=== PATIENT | male | born 1970 ===

== ENCOUNTER 2023-01-12 11:55 | Emergency (ER) | payer MEDICARE, MEDICAID, SELFPAY ==
--- NOTE | 2023-01-12 12:20 | ED.ALLEREA ---
HPI - Allergic Reaction General Chief complaint: Allergic Reaction Stated complaint: allergic reaction Time Seen by Provider: 01/12/23 12:21 Source: patient Mode of arrival: ambulatory Limitations: no limitations History of Present Illness HPI narrative: 52 yo male with no known medical history here with complaints of itching rash after eating fish yesterday. No diff breathing, diff swallowing, cough, wheezing, vomiting, diarrhea, abdominal cramping Related Data Previous Rx's Medication Instructions Recorded prednisone 20 mg tablet 40 mg PO DAILY #10 tabs 01/12/23 Allergies Allergy/AdvReac Type Severity Reaction Status Date / Time Unable to Assess Allergy Verified 01/12/23 12:25 Review of Systems Review of Systems: Yes all other systems are reviewed and are negative Constitutional: Constitutional: Reports no additional constitutional complaints, Denies body ache(s), Denies chills, Denies fever(s), Denies headache(s) and Denies weakness Eyes: Eyes: Reports no additional eye complaints and Denies change in vision ENT: Reports system reviewed and no additional complaints, except as documented, Denies dizziness, Denies headache(s), Denies nasal congestion, Denies nasal discharge and Denies neck pain Cardiovascular: Cardiovascular: Reports no additional cardiovascular complaints, Denies chest pain, Denies leg edema and Denies dyspnea Respiratory: Respiratory: Reports no additional respiratory complaints, Denies cough and Denies dyspnea Gastrointestinal: Gastrointestinal: Reports no additional gastrointestinal complaints, Denies abdominal pain, Denies diarrhea, Denies nausea and Denies vomiting Genitourinary: Genitourinary: Denies urinary incontinence Musculoskeletal: Musculoskeletal: Reports no additional musculoskeletal complaints, Denies back pain, Denies arthralgias, Denies joint swelling, Denies neck pain, Denies numbness and Denies tingling Integumentary/Breasts: Skin/Breast: Reports system reviewed and no additional complaints, except as docu and Reports rash Neurologic: Reports system reviewed and no additional complaints, except as documented, Denies dizziness, Denies headache(s), Denies numbness, Denies tingling and Denies weakness [facility] Past Medical History Attestation statement: The following information was validated with the patient. Source: old records reviewed and nursing notes reviewed Physical Exam ED Vital Signs: Vital Signs - 24 hr 01/12/23 12:21 Temperature 98.3 F Pulse Rate 95 Respiratory Rate 20 Blood Pressure 134/88 Pulse Oximetry 98 Oxygen Delivery Method Room Air BMI result Body Mass Index 26.6 Const General: cooperative, healthy appearing, comfortable and no acute distress Orientation/consciousness: patient oriented x3 Limitations: no limitations HENMT Other: no stridor Head: Yes normal to inspection Ears: hearing grossly normal bilaterally Mouth: Normal oral and palatal mucosa present, lip normal and tongue normal Throat: Yes posterior oropharynx normal, Yes tonsils normal and Yes uvula midline Eyes General: appearance normal, both eyes and all related structures Pupils: Equal, round and reactive pupils present Neck Neck: Yes normal visual inspection, Yes full ROM, Yes no lymphadenopathy and Yes no meningeal signs Chest Chest palpation & inspection: normal inspection of the chest Resp Effort & Inspection: normal respiratory effort Auscultation: clear to auscultation bilaterally Cardio Rate: regular rate Rhythm: regular rhythm Peripheral pulses: Peripheral pulses 2+ throughout GI Inspection: Yes normal to inspection Palpation (GI): Soft to palpation and nontender Back/Spine/Pelvis Thoracic/Lumbar Spine: thoracic and lumbar spine normal to inspection Skin Other: Urticrial rash noted over dorsal hands, left upper extremity, back- very mild Neuro General: patient oriented x3, moves all extremities and no meningeal signs Cranial nerves: Yes Equal, round and reactive pupils present Cognition (Neuro): normal cognition Gait exam (Neuro): Normal gait present Extrem General: Yes normal to inspection, Yes no pedal edema and Yes no calf tenderness Course Course Course Narrative: This is a rapid medical exam. Deferred additional HPI, ROS, PE to primary provider. Medical Decision Making Medical Decision Making MDM Narrative: 52 yo male here with itching rash after eating fish yesterday. Took benadryl x 3 with continued symptoms. No angioedema, airway intact, LS CTA. Very mild rash noted. Will give prednisone course. Reviewed worrisome signs/symptoms with patient and when to seek additional care Differential Diagnosis Differential Diagnoses: The differential diagnosis associated with the presentation includes mild allergic reaction low concern for anaphylaxis Discharge Plan Discharge Clinical Impression: Allergic reaction Patient Disposition: Home, Self-Care Instructions: General Allergic Reaction (ED) Additional Instructions: Continue benadryl as needed Prescriptions: New prednisone 20 mg tablet 40 mg PO DAILY Qty: 10 0RF Referrals: Physician,Unknown J [Primary Care Provider] - Print Language: Marshallese
[2023-01-12 12:21] VITALS: BP 134/88; PULSE 95; RESP 20; TEMP 36.8; O2SAT 98; BMI 26.6
== END 2023-01-12 12:37 | disposition home or self-care (01) ==
PROVIDERS: Emergency Provider Emergency Medicine
DX: L50.0 Allergic urticaria (principal)
CPT/HCPCS: 99282; 99283

== ENCOUNTER 2023-01-13 09:57 | Emergency (ER) | payer MEDICARE, MEDICAID, SELFPAY ==
[2023-01-13 10:02] VITALS: BP 124/81; PULSE 82; RESP 20; TEMP 36.1; O2SAT 96; BMI 26.6
--- NOTE | 2023-01-13 10:43 | ED.ALLEREA ---
HPI - Allergic Reaction General Chief complaint: Allergic Reaction Stated complaint: Allergic Reaction Time Seen by Provider: 01/13/23 10:42 Source: patient and public relations professional Mode of arrival: ambulatory Limitations: language barrier History of Present Illness HPI narrative: 52-year-old male healthy here with complaints of itching rash to the hands and upper extremities which began 2 days ago after eating fish. Patient reports he was seen here yesterday in the emergency room and was prescribed prednisone. He is here today because he reports continued itching. He does not feel like the rash has progressed. He is taking Benadryl with continued symptoms of itching. He denies cough, wheezing, abdominal pain, vomiting, diarrhea, difficulty breathing or so difficulty swallowing Related Data Previous Rx's Medication Instructions Recorded prednisone 20 mg tablet 40 mg PO DAILY #10 tabs 01/12/23 famotidine 40 mg tablet 40 mg PO DAILY #7 tabs 01/13/23 hydrocortisone 2.5 % topical cream 1 appl topical QID PRN itching 01/13/23 #454 grams loratadine 10 mg tablet (Claritin) 10 mg PO DAILY #30 tabs 01/13/23 Allergies Allergy/AdvReac Type Severity Reaction Status Date / Time No Known Allergies Allergy Verified 01/13/23 10:05 Review of Systems Review of Systems: Yes all other systems are reviewed and are negative Constitutional: Constitutional: Reports no additional constitutional complaints, Denies body ache(s), Denies chills, Denies fever(s), Denies headache(s) and Denies weakness Eyes: Eyes: Reports no additional eye complaints and Denies change in vision ENT: Reports system reviewed and no additional complaints, except as documented, Denies dizziness, Denies headache(s), Denies nasal congestion, Denies nasal discharge and Denies neck pain Cardiovascular: Cardiovascular: Reports no additional cardiovascular complaints, Denies chest pain, Denies leg edema and Denies dyspnea Respiratory: Respiratory: Reports no additional respiratory complaints, Denies cough and Denies dyspnea Gastrointestinal: Gastrointestinal: Reports no additional gastrointestinal complaints, Denies abdominal pain, Denies diarrhea, Denies nausea and Denies vomiting Genitourinary: Genitourinary: Denies urinary incontinence Musculoskeletal: Musculoskeletal: Reports no additional musculoskeletal complaints, Denies back pain, Denies arthralgias, Denies joint swelling, Denies neck pain, Denies numbness and Denies tingling Integumentary/Breasts: Skin/Breast: Reports system reviewed and no additional complaints, except as docu and Reports rash Neurologic: Reports system reviewed and no additional complaints, except as documented, Denies dizziness, Denies headache(s), Denies numbness, Denies tingling and Denies weakness PMF Past Medical History Attestation statement: The following information was validated with the patient. Source: old records reviewed and nursing notes reviewed Physical Exam ED Vital Signs: Vital Signs - 24 hr 01/13/23 10:02 Temperature 97.0 F Pulse Rate 82 Respiratory Rate 20 Blood Pressure 124/81 Pulse Oximetry 96 Oxygen Delivery Method Room Air BMI result Body Mass Index 26.6 Const General: cooperative, healthy appearing, comfortable and no acute distress Orientation/consciousness: patient oriented x3 Limitations: no limitations HENMT Head: Yes normal to inspection Ears: hearing grossly normal bilaterally Mouth: Normal oral and palatal mucosa present, lip normal and tongue normal Eyes General: appearance normal, both eyes and all related structures Pupils: Equal, round and reactive pupils present Neck Other: No stridor Neck: Yes normal visual inspection Chest Chest palpation & inspection: normal inspection of the chest Resp Effort & Inspection: normal respiratory effort Auscultation: clear to auscultation bilaterally Cardio Rate: regular rate Rhythm: regular rhythm Peripheral pulses: Peripheral pulses 2+ throughout GI Inspection: Yes normal to inspection Palpation (GI): Soft to palpation and nontender General: Yes no CVA tenderness Back/Spine/Pelvis Back: no CVA tenderness Thoracic/Lumbar Spine: thoracic and lumbar spine normal to inspection Skin Other: Mild urticarial rash noted over the dorsal aspects of the hands, forearms and left upper extremity Neuro General: patient oriented x3 and moves all extremities Cranial nerves: Yes Equal, round and reactive pupils present Medical Decision Making Medical Decision Making MDM Narrative: 52-year-old male here with urticarial rash which is quite itchy for 2 days which he relates to eating fish despite taking 1 dose of prednisone yesterday. Patient also taking Benadryl reports continued itching. Patient has no angioedema or airway involvement His lungs are clear He has a mild urticarial rash noted over the hands and forearms I will add Claritin, famotidine hydrocortisone topical Reviewed worrisome signs and symptoms of when to return to the emergency room. Comfortable plan for discharge home. Differential Diagnosis Differential Diagnoses: The differential diagnosis associated with the presentation includes Low concern for anaphylaxis Discharge Plan Discharge Clinical Impression: Allergic reaction Patient Disposition: Home, Self-Care Instructions: General Allergic Reaction (ED) Additional Instructions: Continue prednisone and benadryl Prescriptions: New famotidine 40 mg tablet 40 mg PO DAILY Qty: 7 0RF loratadine [Claritin] 10 mg tablet 10 mg PO DAILY Qty: 30 0RF hydrocortisone 2.5 % cream 1 appl topical QID PRN (Reason: itching) Qty: 454 0RF No Action prednisone 20 mg tablet 40 mg PO DAILY Qty: 10 0RF Referrals: Allen Mauricio MD [Primary Care Provider] - 1 week Print Language: Romanian
--- OUTSIDE RECORDS SUMMARY | 2023-01-13 10:58 | XMS_ITS | Continuity of Care Document ---
Author Name Unknown Organization [facility] Sandra radha Address [address] [place] [address] [address] [place] [address]- Care Team Providers Care Sql Etl Developer Name Role Phone Not on Staff, PCP Primary Care Physician Unavail able Encounter [facility] Date(s): 12/12/21 - 12/19/21 [facility] [address] [place], [place] [address] Attending Physician: Misael Knowles MD Allergies, Adverse Reactions, Alerts No Known Allergies Immunizations Given and Recorded Vaccine Date Status Refusal Reason tetanus/diphtheria/pertussis, acel(Tdap) 06/20/17 Given Medications Naproxen By Mouth, 0 Refills, Maintenance, 10/03/21 11:14:00 EST, Partial fill upon patient request if the prescription is for a schedule II opioid drug. Start Date: 10/03/21 Status: Ordered Sertraline By Mouth, Daily, 0 Refills, Maintenance, 10/03/21 11:15:00 EST, Partial fill upon patient request if the prescription is for a schedule II opioid drug. Start Date: 10/03/21 Status: Ordered Vital Signs Most recent to oldest [Reference Range]: 1 Height 153 cm (12/12/21 2:17 PM) Social History Social History Type Response Smoking Status Former smoker, quit more than 30 days ago entered on: 10/03/21 Sex
--- OUTSIDE RECORDS SUMMARY | 2023-01-13 10:58 | XMS_ITS | Continuity of Care Document ---
Author Name Unknown Organization [facility] Sandra radha Address [address] [place] [address] [address] [place] [address]- Care Team Providers Care Medical Superintendent Name Role Phone Not on Staff, PCP Primary Care Physician Unavail able Encounter [facility] Date(s): 12/05/21 - 01/04/[address] [place], [place] [address] Allergies, Adverse Reactions, Alerts No Known Allergies [...] opioid drug. Start Date: 10/03/21 Status: Ordered Social History Social History Type Response Smoking Status Former smoker, quit more than 30 days ago entered on: 10/03/21 Sex
--- OUTSIDE RECORDS SUMMARY | 2023-01-13 10:58 | XMS_ITS | Continuity of Care Document ---
Author Name Unknown Organization [facility] radha Address [address] [place] [address] [address] [place] [address]- Care Team Providers Care Net Programmer Name Role Phone Not on Staff, PCP Primary Care Physician Unavail able Encounter [facility] Date(s): 10/31/21 - 11/07/21 [facility] [address] [place], [place] [address] Attending Physician: Misael Knowles MD Allergies, Adverse Reactions, Alerts No Known Allergies Immunizations Given and Recorded Vaccine Date Status Refusal Reason tetanus/diphtheria/pertussis, acel(Tdap) 06/20/17 Given Medications Naproxen By Mouth, 0 Refills, Maintenance, 10/03/21 11:14:00 EST, Partial fill upon patient request if the prescription is for a schedule II opioid drug. Start Date: 10/03/21 Status: Ordered NuLYTELY with Flavor Packs oral powder for reconstitution See Instructions, 240 mL By Mouth Every 15 minutes, # 4,000 mL, 0 Refills, Maintenance, 10/28/20 16:21:00 EDT, [facility] #[id number], Ok to sub for any gallon prep, 240 mL By Mouth Every 15 minutes Start Date: 10/28/20 Status: Ordered Sertraline By Mouth, Daily, 0 Refills, Maintenance, 10/03/21 11:15:00 EST, Partial fill upon patient request if the prescription is for a schedule II opioid drug. Start Date: 10/03/21 Status: Ordered Vital Signs Most recent to oldest [Reference Range]: 1 Height 162 cm (10/31/21 9:22 AM) Weight 69 kg (10/31/21 9:22 AM) Body Mass Index [18.5-24.99] 26.29 *H* (10/31/21 9:22 AM) Social History Social History Type Response Smoking Status Former smoker, quit more than 30 days ago entered on: 10/03/21 Sex
--- OUTSIDE RECORDS SUMMARY | 2023-01-13 10:58 | XMS_ITS | Continuity of Care Document ---
Author Name Unknown Organization [facility] Address [address] [place] [address]- Care Team Providers Care Movie Actor Name Role Phone Hang ECHOLS, Allen Pereira Primary Care Physician Encounter [facility] Date(s): 10/28/20 - 11/27/20 [facility] [address] [place], [place] [address] Allergies, Adverse Reactions, Alerts Substance Reaction Severity Status NKA Active Immunizations Given and Recorded Vaccine Date Status Refusal Reason tetanus/diphtheria/pertussis, acel(Tdap) 06/20/17 Given Medications NuLYTELY with Flavor Packs oral powder for reconstitution See Instructions, 240 mL By Mouth Every 15 minutes, # 4,000 mL, 0 Refills, Maintenance, 10/28/20 16:21:00 EDT, [facility] #[id number], Ok to sub for any gallon prep, 240 mL By Mouth Every 15 minutes Start Date: 10/28/20 Status: Ordered
--- OUTSIDE RECORDS SUMMARY | 2023-01-13 10:58 | XMS_ITS | Continuity of Care Document ---
Author Name Unknown Organization [facility] radha Address [address] [place] [address] [address] [place] [address]- Care Team Providers Care Marketing Operations Associate Name Role Phone Not on Staff, PCP Primary Care Physician Unavail able Encounter [facility] Date(s): 10/05/21 - 11/04/[address] [place], [place] [address] Allergies, Adverse Reactions, Alerts No Known Allergies [...] mL, 0 Refills, Maintenance, 10/28/20 16:21:00 EDT, [facility] #[id number], Ok to sub for any gallon prep, [...]
--- OUTSIDE RECORDS SUMMARY | 2023-01-13 10:58 | XMS_ITS | Continuity of Care Document ---
Author Name Unknown Organization [facility] Address [address] [place] [address]- Care Team Providers Care Metal Polisher And Buffer Apprentice Name Role Phone Allen Mauricio MD Primary Care Physician Encounter [facility] Date(s): 11/01/20 - 11/01/[address] [address] Discharge Disposition: A-D/C Home Attending Physician: Will Jin MD Admitting Physician: Will Jin MD Referring Physician: Will Jin MD Allergies, Adverse Reactions, Alerts Substance Reaction Severity Status NKA Active Immunizations Given and Recorded Vaccine Date Status Refusal Reason tetanus/diphtheria/pertussis, acel(Tdap) 06/20/17 Given Medications NuLYTELY with Flavor Packs oral powder for reconstitution See Instructions, 240 mL By Mouth Every 15 minutes, # 4,000 mL, 0 Refills, Maintenance, 10/28/20 16:21:00 EDT, [facility] #[id number], Ok to sub for any gallon prep, 240 mL By Mouth Every 15 minutes Start Date: 10/28/20 Status: Ordered Vital Signs Most recent to oldest [Reference Range]: 1 2 3 Height 163 cm (11/01/20 2:45 PM) Oxygen Saturation [94-100 %] 100 % (11/01/20 3:43 PM) 99 % (11/01/20 3:35 PM) 98 % (11/01/20 2:45 PM) Pulse Rate [55-90 bpm] 67 bpm (11/01/20 2:45 PM) Blood Pressure [90-138/55-84 mm Hg] 124/90mm Hg (11/01/20 3:43 PM) 137/89mm Hg (11/01/20 3:35 PM) 141/93mm Hg *H* (11/01/20 2:45 PM) Respiratory Rate [16-30 br/min] 20 br/min (11/01/20 3:43 PM) 20 br/min (11/01/20 3:35 PM) 20 br/min (11/01/20 2:45 PM) Temperature [96.8-100.4 DegF] 97.6 DegF (11/01/20 2:45 PM) Mode of Delivery (Oxygen) Room air (11/01/20 3:43 PM) Room air (11/01/20 3:35 PM) Room air (11/01/20 2:45 PM) Temperature Route Temporal (11/01/20 2:45 PM) Dry Weight 69 kg (11/01/20 2:45 PM)
--- OUTSIDE RECORDS SUMMARY | 2023-01-13 10:58 | XMS_ITS | Continuity of Care Document ---
Author Name Unknown Organization [facility] Sandra radha Address [address] [place] [address] [address] [place] [address]- Care Team Providers Care Hvac R Tech Name Role Phone Not on Staff, PCP Primary Care Physician Unavail able Encounter [facility] Date(s): 10/18/21 - 11/25/21 [facility] [address] [place], [place] [address] Attending Physician: Misael Knowles MD [...] mL, 0 Refills, Maintenance, 10/28/20 16:21:00 EDT, [facility] #[id number], Ok to sub for any gallon prep, [...]
--- OUTSIDE RECORDS SUMMARY | 2023-01-13 10:58 | XMS_ITS | Continuity of Care Document ---
Author Name Unknown Organization [facility] Address [address] [place] [address]- Care Team Providers Care Electric Mule Driver Name Role Phone Hang ECHOLS, Allen Pereira Primary Care Physician ( [phone] Encounter [facility] Date(s): 11/29/20 - 12/29/20 [facility] [address] [place], [place] [address] Allergies, Adverse Reactions, Alerts Substance Reaction Severity Status NKA Active Immunizations Given and Recorded Vaccine Date Status Refusal Reason tetanus/diphtheria/pertussis, acel(Tdap) 06/20/17 Given Medications NuLYTELY with Flavor Packs oral powder for reconstitution See Instructions, 240 mL By Mouth Every 15 minutes, # 4,000 mL, 0 Refills, Maintenance, 10/28/20 16:21:00 EDT, [facility] #[id number], Ok to sub for any gallon prep, 240 mL By Mouth Every 15 minutes Start Date: 10/28/20 Status: Ordered
--- OUTSIDE RECORDS SUMMARY | 2023-01-13 10:58 | XMS_ITS | Continuity of Care Document ---
Author Name Unknown Organization [facility] radha Address [address] [place] [address] [address] [place] [address]- Care Team Providers Care Community Board Member Name Role Phone Not on Staff, PCP Primary Care Physician Unavail able Encounter [facility] Date(s): 04/05/22 - 05/05/22 [facility] [address] [place], [place] [address] Attending Physician: Horace Arevalo Admitting Physician: AdmHorace lam Referring Physician: Admtr, Ar8 Allergies, Adverse Reactions, Alerts No Known Allergies [...] 30 days ago entered on: 10/03/21 Sex Patient Care team information Personnel Name: Not on Staff, PCP
--- OUTSIDE RECORDS SUMMARY | 2023-01-13 10:58 | XMS_ITS | Continuity of Care Document ---
Author Name Unknown Organization [facility] Sandra radha Address [address] [place] [address] [address] [place] [address]- Care Team Providers Care Chief Chemist Name Role Phone Not on Staff, PCP Primary Care Physician Unavail able Encounter [facility] Date(s): 03/27/22 - 05/05/[address] [place], [place] [address] Attending Physician: Benson ECHOLS, Misael Matthews Allergies, Adverse Reactions, Alerts No Known Allergies [...]
--- OUTSIDE RECORDS SUMMARY | 2023-01-13 10:58 | XMS_ITS | Continuity of Care Document ---
Author Name Unknown Organization [facility] Sandra radha Address [address] [place] [address] [address] [place] [address]- Care Team Providers Care Circulation Manager Name Role Phone Allen Mauricio MD Primary Care Physician Encounter [facility] [id number] Date(s): 10/03/21 - 10/10/21 [facility] [address] [place] [address]- Attending Physician: Misael Knowles MD Referring Physician: Allen Mauricio MD Allergies, Adverse Reactions, Alerts No Known [...] 4,000 mL, 0 Refills, Maintenance, 10/28/20 16:21:00 T, [facility] #[id number], Ok to sub for any gallon prep, 240 mL By Mouth Every 15 minutes Start Date: 10/28/20 Status: Ordered Sertraline By Mouth, Daily, 0 Refills, Maintenance, 10/03/21 11:15:00 EST, Partial fill upon patient request if the prescription is for a schedule II opioid drug. Start Date: 10/03/21 Status: Ordered Vital Signs Most recent to oldest [Reference Range]: 1 Height 162 cm (10/03/21 11:05 AM) Weight 69 kg (10/03/21 11:05 AM) Body Mass Index [18.5-24.99] 26.29 *H* (10/03/21 11:05 AM) Social History Social History Type Response Smoking Status Former smoker, quit more than 30 days ago entered on: 10/03/21 Sex
--- OUTSIDE RECORDS SUMMARY | 2023-01-13 10:58 | XMS_ITS | Continuity of Care Document ---
Author Name Unknown Organization [facility] Address [address] [place] [address]- Care Team Providers Care Hydrometer Finisher Name Role Phone Hang ECHOLS, Allen Pereira Primary Care Physician Encounter [facility] Date(s): 09/21/20 - 10/21/20 [facility] [address] [place], [place] [address] Attending Physician: Admtr, Horace Admitting Physician: Admtr, Ar8 Referring Physician: Admtr, Ar8 Allergies, Adverse Reactions, Alerts Substance Reaction Severity Status NKA Active Immunizations Given and Recorded Vaccine Date Status Refusal Reason tetanus/diphtheria/pertussis, acel(Tdap) 06/20/17 Given Medications NuLYTELY with Flavor Packs oral powder for reconstitution See Instructions, 240 mL By Mouth Every 15 minutes, # 4,000 mL, 0 Refills, Maintenance, 09/21/20 10:12:00 [facility] #[id number], Partial fill upon patient request if the prescription is for a schedule II opioid drug., 240 mL By Mouth Every... Start Date: 09/21/20 Status: Ordered
== END 2023-01-13 11:04 | disposition home or self-care (01) ==
PROVIDERS: Emergency Provider Emergency Medicine; PCP Internal Medicine
DX: L50.9 Urticaria, unspecified (principal); T78.40XA Allergy, unspecified, initial encounter; X58.XXXA Exposure to other specified factors, initial encounter
CPT/HCPCS: 99282; 99283

== ENCOUNTER 2023-01-14 06:55 | Emergency (ER) | payer MEDICARE, MEDICAID, SELFPAY ==
[2023-01-14 07:07] VITALS: BP 135/99; PULSE 79; RESP 19; TEMP 36.6; O2SAT 99; BMI 26.6
[2023-01-14 08:42] VITALS: BP 163/93; PULSE 72; RESP 16; O2SAT 97
[2023-01-14 08:48] LABS: MANUAL DIFF FLAG NO
[2023-01-14 08:50] LABS: Basophils Percent Auto 0.3 % (0-2); Eosinophils Absolute Auto 0.1 X10*3/uL (0.0-0.4); Eosinophils Percent Auto 2.1 % (0-4); Hematocrit 40.4 % (42.0-52.0); Hemoglobin 13.5 g/dl (14.0-18.0); Imm Gran Abs Auto 0.03 X10*3/uL (0.00-0.03); Imm Gran Pct Auto 0.5 % (0.0-0.4); Lymphocytes Absolute Auto 1.7 X10*3/uL (1.2-4.9); Lymphocytes Percent Auto 25.8 % (20-40); Mean Corpuscular HGB Conc 33.4 g/dl (31.0-36.0); Mean Corpuscular Hemoglobin 29.5 pg (27.0-33.0); Mean Corpuscular Volume 88.2 fL (80.0-98.0); Mean Platelet Volume 9.9 fL (9.4-12.4); Monocytes Absolute Auto 0.4 X10*3/uL (0.1-1.2); Monocytes Percent Auto 6.2 % (2-11); Neutrophils Absolute Auto 4.3 x10*3/uL (2.0-8.3); Neutrophils Percent Auto 65.1 % (45-73); Platelet Count 182 X10*3/uL (160-400); Red Blood Count 4.58 X10*6/uL (4.60-5.80); White Blood Count 6.6 X10*3/uL (4.8-10.8)
[2023-01-14 09:04] LABS: Alanine Aminotransferase 13 U/L (0-40); Albumin Level 4.3 g/dL (3.5-5.0); Alkaline Phosphatase 107 U/L (39-117); Anion Gap 12 (12-20); Aspartate Amino Transferase 14 U/L (5-37); Bilirubin Total 0.2 mg/dL (0.0-1.0); Blood Urea Nitrogen 16 mg/dL (9-16); Calcium 9.4 mg/dL (8.4-10.2); Carbon Dioxide 25 mmol/L (22-29); Chloride 110 mmol/L (96-108); Creatinine Clr Calc Pharmacy 94.1; Estimated Glomerular Filt Rate > 60; Glucose Random 104 mg/dL (60-115); Potassium 3.8 mmol/L (3.3-5.1); Sodium 143 mmol/L (135-145)
--- NOTE | 2023-01-14 09:08 | ED_ITS ---
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 He has be en evaluated here in the emergency room on Sunday, Sunday, and then again today. Patient states that he has known allergy to shrimp but he had not had any reaction to fish until evening. He denies any employment related contact with [employer] in states that he states at home and watches TV. Related Data Previous Rx's Medication Instructions Recorded prednisone 20 mg tablet 40 mg PO DAILY #10 tabs 01/12/23 famotidine 40 mg tablet 40 mg PO DAILY #7 tabs 01/13/23 hydrocortisone 2.5 % topical cream 1 appl topical QID PRN itching 01/13/23 #454 grams loratadine 10 mg tablet (Claritin) 10 mg PO DAILY #30 tabs 01/13/23 Allergies Allergy/AdvReac Type Severity Reaction Status Date / Time No Known Allergies Allergy Verified 01/14/23 07:07 Review of Systems Review of Systems: Pertinent positives and negatives as stated in [facility] Past Medical History Source: nursing notes reviewed Social History Social History Advance Directives: No Advance Directives Information Provided: Yes Physical Exam ED Vital Signs: Vital Signs - 24 hr 01/14/23 07:07 01/14/23 08:42 01/14/23 10:23 Temperature 98 F Pulse Rate 79 72 66 Respiratory Rate 19 16 14 Blood Pressure 135/99 H 163/93 H 140/73 H Pulse Oximetry 99 97 97 Oxygen Delivery Method Room Air Room Air Room Air BMI result Body Mass Index 26.6 VITAL SIGNS: Reviewed. GENERAL: Well developed, well nourished, in no acute distress. HEAD: Normocephalic/atraumatic EYES: PERRLA, EOMI EARS: Ext canals without abnormality NOSE: Nares patent bilateral OROPHARYNX: no oral lesions noted, posterior pharynx clear, no facial/tongue/lip swelling NECK: Supple, no adenopathy LUNGS: Normal breath sounds. No adventitious sounds or accessory muscle use. SpO2<97> CARDIOVASCULAR: Regular rate and rhythm without noted murmurs ABDOMEN: Soft, non-tender, non-distended with bowel sounds. MUSCULOSKELETAL: No tenderness, deformities, or effusions noted on gross inspection. EXTREMITIES: No cyanosis, clubbing or edema. SKIN: Inspection of the skin reveals grouped papular rash to bilateral hand dorsum, 1 site at the left upper eyelid, slightly reddened area at the right lateral malleolus NEUROLOGIC: Alert and oriented x 4. Strength and sensation to light touch were grossly intact x 4. Medications Administered Discontinued Medications Generic Name Dose Route Start Last Admin Trade Name Freq PRN Reason Stop Dose Admin Diphenhydramine HCl 50 mg 01/14/23 08:37 01/14/23 09:37 Diphenhydramine Hcl 50 Mg/Ml Vial IVPUSH 01/14/23 08:38 50 mg ONCE ONE Administration Methylprednisolone Sodium Succinate 125 mg 01/14/23 08:37 01/14/23 09:37 Methylprednisolone Sod Succ 125 Mg/2 Ml Vial IVPUSH 01/14/23 08:38 125 mg ONCE ONE Administration Medical Decision Making Medical Decision Making MDM Narrative: 52-year-old male with history and clinical presentation consistent with poison [place]ira exposure but patient adamantly denies, inconsistent with shingles, does not appear be in any way related with angioedema or anaphylaxis, inconsistent with a porphyria. Will obtain basic labs, give 125 mg of Solu-Medrol, 50 mg of IV Benadryl and re-evaluate. No evidence to suggest anaphylaxis. On re-evaluation patient is feeling much better, resting comfortably and will be discharged home to complete the remaining course of medications that he has already been prescribed. Differential Diagnosis Please see the discussion above Lab Data 01/14/23 08:45 01/14/23 08:45 Labs: Lab Results 01/14/23 01/14/23 Range/Units 08:45 08:45 WBC 6.6 (4.8-10.8) X10*3/uL RBC 4.58 L (4.60-5.80) X10*6/uL Hgb 13.5 L (14.0-18.0) g/dl Hct 40.4 L (42.0-52.0) % MCV 88.2 (80.0-98.0) fL MCH 29.5 (27.0-33.0) pg MCHC 33.4 (31.0-36.0) g/dl RDW 14.0 (11.0-16.0) % Plt Count 182 (160-400) X10*3/uL MPV 9.9 (9.4-12.4) fL Immature Gran % (Auto) 0.5 H (0.0-0.4) % Neut % (Auto) 65.1 (45-73) % Lymph % (Auto) 25.8 (20-40) % Mckinley % (Auto) 6.2 (2-11) % Eos % (Auto) 2.1 (0-4) % Baso % (Auto) 0.3 (0-2) % Lymph # (Auto) 1.7 (1.2-4.9) X10*3/uL Mckinley # (Auto) 0.4 (0.1-1.2) X10*3/uL Eos # (Auto) 0.1 (0.0-0.4) X10*3/uL Baso # (Auto) 0.0 (0.0-0.2) X10*3/uL Abs Immat Gran (auto) 0.03 (0.00-0.03) X10*3/uL Absolute Neuts (auto) 4.3 (2.0-8.3) x10*3/uL Absolute Nucleated RBC 0.000 (0.0-0.012) X10*3/uL Nucleated RBC % (auto) 0.0 (0.0-0.2) /100WBC Sodium 143 (135-145) mmol/L Potassium 3.8 (3.3-5.1) mmol/L Chloride 110 H (96-108) mmol/L Carbon Dioxide 25 (22-29) mmol/L Anion Gap 12 (12-20) BUN 16 (9-16) mg/dL Creatinine 0.76 (0.5-1.4) mg/dL Estim Creat Clear Calc 94.1 Estimated GFR > 60 Random Glucose 104 (60-115) mg/dL Calcium 9.4 (8.4-10.2) mg/dL Total Bilirubin 0.2 (0.0-1.0) mg/dL AST 14 (5-37) U/L ALT 13 (0-40) U/L Alkaline Phosphatase 107 (39-117) U/L Total Protein 7.0 (6.5-8.0) g/dL Albumin 4.3 (3.5-5.0) g/dL Discharge Plan Discharge Clinical Impression: Allergic reaction, Contact dermatitis due to poison [place] Patient Disposition: Home, Self-Care Instructions: Poison [place] (ED), General Allergic Reaction (ED) Additional Instructions: 1. Reanudar todos los medicamentos caseros seg?n lo prescrito. 2. Seguimiento con el proveedor de atenci?n primaria ma?yue por la ma?yue. Regrese a la gutierrez de emergencias si los s?ntomas empeoran. 1. Resume all home medications as prescribed. 2. Follow-up with primary care provider tomorrow morning. Return to the ER for any worsening symptoms. Prescriptions: No Action famotidine 40 mg tablet 40 mg PO DAILY Qty: 7 0RF loratadine [Claritin] 10 mg tablet 10 mg PO DAILY Qty: 30 0RF hydrocortisone 2.5 % cream 1 appl topical QID PRN (Reason: itching) Qty: 454 0RF prednisone 20 mg tablet 40 mg PO DAILY Qty: 10 0RF Referrals: Allen Mauricio MD [Primary Care Provider] - Print Language: Azeri
[2023-01-14] MEDS: methylPREDNISolone Sod Succ 125 MG/2 ML VIAL IVPUSH (09:37)
[2023-01-14] MEDS: diphenhydrAMINE HCL 50 MG/ML VIAL IVPUSH (09:37)
--- NOTE | 2023-01-14 10:11 | PC.NURSE ---
20g iv inserted rac. meds given as ordered. pt resting quietly, no apparent distress.
[2023-01-14 10:23] VITALS: BP 140/73; PULSE 66; RESP 14; O2SAT 97
== END 2023-01-14 11:09 | disposition home or self-care (01) ==
PROVIDERS: Emergency Provider Student in an Organized Health Care Education/Training Program; PCP Internal Medicine
DX: L23.7 Allergic contact dermatitis due to plants, except food (principal)
CPT/HCPCS: 36415; 80053; 85025; 96374; 96375; 99283; 99284; J1200; J2930